=== PATIENT | male | born 1970 | race Caucasian/White ===

== ENCOUNTER 2016-11-26 14:07 | Emergency (ER) | payer OTHER ==
[~2016-11-26] VITALS: Ht 174 cm; Wt 128.8 kg
[~2016-11-26 14:07] MED LIST: OLME20TA19 PO; PRILOSEC PO
[2016-11-26] MEDS ORDERED: SODIUM CHLORIDE 0.9% 1,000 ML IV ONE (14:37)
[2016-11-26] MEDS ORDERED: SODIUM CHLORIDE FLUSH 10ML SYR IVF ONE (15:00)
[2016-11-26] MEDS ORDERED: ONDANSETRON 2MG/ML, 2ML IVPush ONE (15:00)
[2016-11-26] MEDS ORDERED: HYDROmorphone 1 MG/ML, 1ML IVPush PRN (15:00)
[2016-11-26] MEDS ORDERED: SODIUM CHLORIDE 0.9% 1,000ML IVBOLUS ONE (15:00)
[2016-11-26 15:08] LABS: HEMATOCRIT 49.6 % (39.2-51.8); HEMOGLOBIN 17.2 g/dL (13.7-18.0)
[2016-11-26 15:21] LABS: BLOOD UREA NITROGEN 22 mg/dL (7-18)
[2016-11-26 15:24] LABS: ASPARTATE AMINO TRANSFERASE 17 U/L (15-37)
[2016-11-26] MEDS ORDERED: CIPROFLOXACIN 500 MG TABLET ONE (17:39)
[2016-11-26] MEDS ORDERED: METRONIDAZOLE PMX 500MG/100ML 100 ML ONE (17:39)
[2016-11-26] MEDS ORDERED: CIPROFLOXACIN 500 MG TABLET PO ONE (18:00)
[2016-11-26] MEDS ORDERED: METRONIDAZOLE PMX 500MG/100ML 100 ML IVPB ONE (18:00)
[2016-11-26 18:18] VITALS: BP 123/72
== END 2016-11-26 18:43 | disposition home or self-care (01) ==
LOC: ED 15:37
DX: K57.32 Diverticulitis of large intestine without perforation or abscess without bleeding (principal); I10 Essential (primary) hypertension; K21.9 Gastro-esophageal reflux disease without esophagitis; Z87.891 Personal history of nicotine dependence
CPT/HCPCS: 36415; 74177; 80053; 81003; 83605; 85025; 96361; 96365; 99285; J7030

== ENCOUNTER 2016-11-28 08:58 | Emergency (ER) | payer OTHER ==
[~2016-11-28] VITALS: Ht 175.3 cm; Wt 129.1 kg
[2016-11-28] MEDS ORDERED: SODIUM CHLORIDE 0.9% 1,000 ML IV ONE (09:34)
[2016-11-28] MEDS ORDERED: ONDANSETRON 2MG/ML, 2ML ONE (09:50)
[2016-11-28] MEDS ORDERED: FAMOTIDINE 20 MG/2 ML ONE (09:50)
[2016-11-28] MEDS ORDERED: FAMOTIDINE 20 MG/2 ML IVP ONE (10:00)
[2016-11-28] MEDS ORDERED: ONDANSETRON 2MG/ML, 2ML IVPush ONE (10:00)
[2016-11-28 10:38] LABS: HEMATOCRIT 49.1 % (39.2-51.8); HEMOGLOBIN 16.8 g/dL (13.7-18.0); WHITE BLOOD COUNT 7.8 x10^3/uL (3.4-10)
[2016-11-28 10:43] VITALS: BP 118/70
[2016-11-28 10:48] LABS: ASPARTATE AMINO TRANSFERASE 16 U/L (15-37); BLOOD UREA NITROGEN 14 mg/dL (7-18)
[2016-11-28] MEDS ORDERED: ONDANSETRON ODT 4 MG PO PRN (11:30)
[2016-11-28] MEDS ORDERED: MAGNESIUM CITRATE 300ML ORAL SOL PO ONE (11:30)
[2016-11-28] MEDS ORDERED: MAGNESIUM CITRATE 300ML ORAL SOL ONE (11:32)
== END 2016-11-28 12:57 | disposition home or self-care (01) ==
LOC: ED 09:25
DX: K57.92 Diverticulitis of intestine, part unspecified, without perforation or abscess without bleeding (principal); I10 Essential (primary) hypertension; Z87.891 Personal history of nicotine dependence
CPT/HCPCS: 36415; 74022; 80053; 83690; 85025; 96361; 96374; 96375; 99285; J2405; J7030; S0028

== ENCOUNTER 2016-12-01 09:13 | Emergency (ER) | payer OTHER ==
[~2016-12-01] VITALS: Ht 172.7 cm; Wt 128.8 kg
[2016-12-01 09:19] VITALS: BP 150/86
== END 2016-12-01 10:30 | disposition home or self-care (01) ==
LOC: ED 10:23
DX: G62.9 Polyneuropathy, unspecified (principal); T36.8X5A Adverse effect of other systemic antibiotics, initial encounter; Y92.89 Other specified places as the place of occurrence of the external cause; I10 Essential (primary) hypertension; K21.9 Gastro-esophageal reflux disease without esophagitis; Z87.891 Personal history of nicotine dependence
CPT/HCPCS: 93005; 99283

== ENCOUNTER 2019-12-10 17:30 | Emergency (ER) | payer OTHER ==
[~2019-12-10] VITALS: Ht 175.3 cm; Wt 136.9 kg
[~2019-12-10 17:30] MED LIST changes: +OLME20TA17 PO; -OLME20TA19 PO
[2019-12-10] MEDS ORDERED: OMEP20TA62 PO (17:50)
[2019-12-10 18:11] LABS: BASOPHILS % (AUTO) 1 % (0-1); EOSINOPHILS % (AUTO) 3 % (1-7); LYMPHOCYTES % (AUTO) 32 % (22-44); MEAN CORPUSCULAR HEMOGLOBIN 30.2 pg (27.5-34.5); MEAN CORPUSCULAR HGB CONC 34.4 g/dL (33.2-36.2); MEAN PLATELET VOLUME 8.2 fL (7.4-10.4); MONOCYTES % (AUTO) 9 % (2-9); NEUTROPHILS % (AUTO) 55 % (42-75); PLATELET COUNT 270 x10^3/uL (130-400); RED BLOOD COUNT 5.44 x10^6/uL (4.38-5.82); RED CELL DISTRIBUTION WIDTH 13.5 % (9.4-14.8)
[2019-12-10 18:20] LABS: MD NO
[2019-12-10 18:23] LABS: ALANINE AMINOTRANSFERASE 67 U/L (12-78); ALBUMIN 3.7 g/dL (3.4-5.0); ANION GAP 4 mmol/L (5-15); CHLORIDE 105 mmol/L (98-107); CREATININE 1.33 mg/dL (0.7-1.3)
[2019-12-10 18:25] LABS: ALKALINE PHOSPHATASE 89 U/L (45-117); BILIRUBIN,TOTAL 2.9 mg/dL (0.2-1.0); TOTAL PROTEIN 6.9 g/dL (6.4-8.2)
[2019-12-10] MEDS ORDERED: HYDR25TA6 PO (18:28)
--- NOTE | 2019-12-10 18:32 | NUR ---
PT SITTING UPRIGHT ON GURNEY WATCHING TV. PT REPORTS MINIMAL PAIN. NO ADDITIONAL NEEDS AT THIS TIME. CALL LIGHT WITHIN REACH, FALL PRECAUTIONS IN PLACE.
--- NOTE | 2019-12-10 18:50 | NUR ---
BEDSIDE REPORT TO CAMMIE MENA
[2019-12-10] MEDS ORDERED: SODIUM CHLORIDE FLUSH 10ML SYR IVF ONE (19:00)
--- NOTE | 2019-12-10 19:00 | NUR ---
REPORT RECEIVED FROM FREDRICK MENA. PT IN CT
[2019-12-10] MEDS ORDERED: OMNIPAQUE 350 MG/ML, 150 ML BOTTLE ONE (19:01)
--- NOTE | 2019-12-10 19:10 | NUR ---
PT BACK FROM CT, NO COMPLAINTS
[2019-12-10] MEDS ORDERED: AMOXICILLIN/CLAV 875-125MG TABLET PO ONE (19:32)
[2019-12-10] MEDS ORDERED: AMOXICILLIN/CLAV 875-125MG TABLET ONE (19:45)
[2019-12-10 20:25] VITALS: BP 155/90
== END 2019-12-10 20:33 | disposition home or self-care (01) ==
LOC: ED 19:27
DX: K57.92 Diverticulitis of intestine, part unspecified, without perforation or abscess without bleeding (principal); R11.0 Nausea; R10.32 Left lower quadrant pain; I10 Essential (primary) hypertension; K21.9 Gastro-esophageal reflux disease without esophagitis; Z87.891 Personal history of nicotine dependence
CPT/HCPCS: 36415; 74177; 80053; 83690; 85025; 99285; Q9967

== ENCOUNTER 2020-01-29 10:38 | Emergency (ER) | payer OTHER ==
[~2020-01-29] VITALS: Ht 175.3 cm; Wt 137.2 kg
[~2020-01-29 10:38] MED LIST changes: +HYDR25TA6 PO; +OMEP20TA62 PO
[2020-01-29] MEDS ORDERED: SODIUM CHLORIDE FLUSH 10ML SYR IVF ONE (11:00)
[2020-01-29 11:43] LABS: BASOPHILS % (AUTO) 1 % (0-1); EOSINOPHILS % (AUTO) 2 % (1-7); LYMPHOCYTES % (AUTO) 18 % (22-44); MEAN CORPUSCULAR HEMOGLOBIN 30.1 pg (27.5-34.5); MEAN CORPUSCULAR HGB CONC 34.4 g/dL (33.2-36.2); MEAN PLATELET VOLUME 9.1 fL (7.4-10.4); MONOCYTES % (AUTO) 8 % (2-9); NEUTROPHILS % (AUTO) 71 % (42-75); PLATELET COUNT 209 x10^3/uL (130-400); RED BLOOD COUNT 5.77 x10^6/uL (4.38-5.82); RED CELL DISTRIBUTION WIDTH 13.4 % (9.4-14.8)
--- NOTE | 2020-01-29 11:48 | NUR ---
BEDSIDE REPORT RECIEVED FROM RAJESH GALLAGHER FOR TRANSFER OF PATIENT CARE.
[2020-01-29 11:55] LABS: ALANINE AMINOTRANSFERASE 51 U/L (12-78); ALBUMIN 3.5 g/dL (3.4-5.0); ANION GAP 3 mmol/L (5-15); CALCIUM 8.4 mg/dL (8.5-10.1); CHLORIDE 108 mmol/L (98-107)
[2020-01-29 11:57] LABS: ALKALINE PHOSPHATASE 104 U/L (45-117); TOTAL PROTEIN 6.8 g/dL (6.4-8.2)
[2020-01-29 11:59] LABS: MD SCAN
--- NOTE | 2020-01-29 12:17 | NUR ---
BREAK RN- URINE COLLECTED. PT RESTING IN BED.
[2020-01-29 12:33] VITALS: BP 123/71
--- NOTE | 2020-01-29 12:33 | NUR ---
pt to imaging.
[2020-01-29 13:10] LABS: MICROSCOPIC INDICATED
--- NOTE | 2020-01-29 13:21 | NUR ---
PATIENT AMBULATED WITH STEADY GAIT TO BATHROOM.
[2020-01-29] MEDS ORDERED: metroNIDAZOLE 500 MG TABLET ONE (13:24)
[2020-01-29] MEDS ORDERED: CIPROFLOXACIN 500 MG TABLET ONE (13:25)
[2020-01-29] MEDS ORDERED: OMNIPAQUE 350 MG/ML, 100ML BOTTLE ONE (13:28)
[2020-01-29] MEDS ORDERED: metroNIDAZOLE 500 MG TABLET PO ONE (13:30)
[2020-01-29] MEDS ORDERED: CIPROFLOXACIN 500 MG TABLET PO ONE (13:30)
--- NOTE | 2020-01-29 14:14 | NUR ---
Patient given discharge instructions and they have confirmed that they understand the instructions. Patient stable and ambulatory with steady gait.
== END 2020-01-29 14:15 | disposition home or self-care (01) ==
LOC: ED 13:15
DX: K57.32 Diverticulitis of large intestine without perforation or abscess without bleeding (principal); R10.32 Left lower quadrant pain; I10 Essential (primary) hypertension; Z87.891 Personal history of nicotine dependence
CPT/HCPCS: 36415; 74177; 80053; 81001; 85025; 87086; 99285; Q9967

== ENCOUNTER 2020-02-07 14:30 | Emergency (ER) | payer OTHER ==
[~2020-02-07] VITALS: Ht 175.3 cm; Wt 140.0 kg
[2020-02-07 14:38] VITALS: BP 145/88
== END 2020-02-07 17:30 | disposition home or self-care (01) ==
LOC: ED 16:35
DX: R20.2 Paresthesia of skin (principal); I10 Essential (primary) hypertension; K21.9 Gastro-esophageal reflux disease without esophagitis
CPT/HCPCS: 99281

== ENCOUNTER 2020-05-09 17:28 | Emergency (ER) | payer OTHER ==
[~2020-05-09] VITALS: Ht 175.3 cm; Wt 137.8 kg
--- NOTE | 2020-05-09 17:52 | NUR ---
BREAK RN: PT C/O LEFT SIDED ABD PAIN. PT REPORTS HE BELIVES HIS DIVERTICULITIS IS ACTING UP. PT ALSO REPORTS HE HAD A SMALL BOWEL MOVEMENT THIS AM. VS STABLE. NO ACUTE DISTRESS NOTED. DR PALACIOS IN ROOM. CALL LIGHT IN PLACE. WILL CONTINUE TO MONITOR WHILE PRIMARY RN IS ON BREAK.
[2020-05-09] MEDS ORDERED: SODIUM CHLORIDE FLUSH 10ML SYR IVF ONE (18:00)
[2020-05-09 18:35] LABS: BASOPHILS % (AUTO) 2 % (0-1); EOSINOPHILS % (AUTO) 3 % (1-7); LYMPHOCYTES % (AUTO) 33 % (22-44); MEAN CORPUSCULAR HEMOGLOBIN 30.7 pg (27.5-34.5); MEAN CORPUSCULAR HGB CONC 34.8 g/dL (33.2-36.2); MEAN PLATELET VOLUME 8.1 fL (7.4-10.4); MONOCYTES % (AUTO) 9 % (2-9); NEUTROPHILS % (AUTO) 53 % (42-75); PLATELET COUNT 270 x10^3/uL (130-400); RED BLOOD COUNT 5.42 x10^6/uL (4.38-5.82); RED CELL DISTRIBUTION WIDTH 14.1 % (9.4-14.8)
[2020-05-09 18:36] LABS: MICROSCOPIC NOT IND
[2020-05-09 18:42] LABS: MD NO
[2020-05-09 18:45] LABS: ALANINE AMINOTRANSFERASE 61 U/L (12-78); ALBUMIN 3.7 g/dL (3.4-5.0); ANION GAP 6 mmol/L (5-15); CALCIUM 8.8 mg/dL (8.5-10.1); CHLORIDE 109 mmol/L (98-107); CREATININE 1.22 mg/dL (0.7-1.3)
[2020-05-09 18:47] LABS: ALKALINE PHOSPHATASE 81 U/L (45-117); BILIRUBIN,TOTAL 1.8 mg/dL (0.2-1.0); TOTAL PROTEIN 6.8 g/dL (6.4-8.2)
--- NOTE | 2020-05-09 19:07 | NUR ---
pt out to imaging via gurney, taken by tech with no signs or symptoms of acute distress noted respirations even and unlabored
[2020-05-09] MEDS ORDERED: OMNIPAQUE 350 MG/ML, 100ML BOTTLE ONE (19:24)
[2020-05-09 20:09] VITALS: BP 113/60
== END 2020-05-09 20:16 | disposition home or self-care (01) ==
LOC: ED 20:14
DX: K57.32 Diverticulitis of large intestine without perforation or abscess without bleeding (principal); R10.32 Left lower quadrant pain; I10 Essential (primary) hypertension; M10.9 Gout, unspecified; R94.31 Abnormal electrocardiogram [ECG] [EKG]
CPT/HCPCS: 36415; 74177; 80053; 81003; 83690; 85025; 93005; 99285; Q9967

== ENCOUNTER → 2020-08-05 | Outpatient (CLI) | payer OTHER | END | disposition home or self-care (01) | LOC: RAD 14:24 | PROVIDERS: ATTEND Physician Assistant Surgical | DX: R22.41 Localized swelling, mass and lump, right lower limb (principal) ==